=== PATIENT | female | born 1930 | race Caucasian/White ===

== ENCOUNTER 2016-12-23 19:24 | Inpatient (IN) | payer MEDICARE, BC ==
[~2016-12-23] VITALS: Ht 170.2 cm; Wt 57.3 kg
[2016-12-23] MEDS ORDERED: OPTIRAY 350 100 ML VIAL HMH IV ONE (19:25)
[2016-12-23] MEDS ORDERED: FAMOTIDINE 20 MG INJ ONE (23:21)
[2016-12-23] MEDS ORDERED: ONDANSETRON 4 MG VIAL ONE (23:21)
[2016-12-24] MEDS ORDERED: Furosemide 100 MG/10 ML VIAL ONE (03:08)
[2016-12-24] MEDS ORDERED: PROMETHAZINE 25 MG/ML VIAL IV PRN (05:45)
[2016-12-24] MEDS ORDERED: ONDANSETRON 4 MG VIAL IV PUSH PRN (05:45)
[2016-12-24] MEDS ORDERED: ACETAMINOPHEN 325 MG TAB PO PRN (05:45)
[2016-12-24 06:37] VITALS: BMI 19.6
[2016-12-24 06:39] VITALS: BP_SYST 140; BP_SYST 162; RESP 18; TEMP 98.1
[2016-12-24] MEDS ORDERED: Furosemide 20 MG/2 ML VIAL IV SCH (08:00)
[2016-12-24 08:17] VITALS: Ht 170.2 cm; Wt 57.3 kg
[2016-12-24] MEDS: PANTOPRAZOLE 40 MG VIAL IV SCH (08:40)
[2016-12-24] MEDS ORDERED: FLUOROURACIL PO SCH (09:25)
[2016-12-24] MEDS ORDERED: PROP PO SCH (09:25)
[2016-12-24] MEDS ORDERED: *PINK BRACELET XX ONE (09:45)
[2016-12-24] MEDS ORDERED: LIDOCAINE 2% SYR 5 ML IV ONE (09:51)
[2016-12-24] MEDS ORDERED: PROPOFOL 50ML VIAL IV ONE (09:51)
[2016-12-24] MEDS: Carvedilol 6.25 MG TAB PO SCH ×2 (09:53→20:06)
[2016-12-24] MEDS: FLUOROURACIL TOPICAL SCH ×2 (09:54→20:06)
[2016-12-24] MEDS: PROP TOPICAL SCH ×2 (09:54→20:06)
[2016-12-24 11:12] VITALS: BP_SYST 132; RESP 18; TEMP 97.5
[2016-12-24 11:56] VITALS: RESP 18
[2016-12-24 15:36] VITALS: BP_SYST 146; RESP 18; TEMP 97.7
[2016-12-24] MEDS ORDERED: [UNRECOGNIZED DRUG - REMARK] XX SCH (20:00)
[2016-12-24] MEDS: *HOME MEDS IN MED CART XX SCH (20:00)
[2016-12-24 20:14] VITALS: BP_SYST 150; RESP 18; TEMP 97.4
[2016-12-24] MEDS ORDERED: LORAZEPAM 0.5 MG TAB PO SCH (21:00)
[2016-12-24] MEDS ORDERED: TRAZODONE 50 MG TAB PO SCH ×2 (21:00)
[2016-12-24] MEDS ORDERED: AMITRIPTYLINE 25 MG TAB PO SCH (21:00)
[2016-12-24 23:50] VITALS: BP_SYST 133; RESP 18; TEMP 96.1
[2016-12-25] VITALS (8 sets, daily range): BP systolic 118–154; RESP 16–25; TEMP 96.1–99
[2016-12-25] MEDS: *HOME MEDS IN MED CART XX SCH (08:00)
[2016-12-25] MEDS ORDERED: ALLOPURINOL 100 MG TAB PO SCH (09:00)
[2016-12-25] MEDS ORDERED: FLUCONAZOLE 100 MG TAB PO SCH (09:00)
[2016-12-25] MEDS ORDERED: Furosemide 40 MG TAB PO SCH (09:00)
[2016-12-25] MEDS ORDERED: Furosemide 20 MG/2 ML VIAL IV SCH (09:00)
[2016-12-25] MEDS ORDERED: ASPIRIN EC 81 MG TAB PO SCH (09:00)
[2016-12-25] MEDS: PANTOPRAZOLE 40 MG VIAL IV SCH (09:51)
[2016-12-25] MEDS: Carvedilol 6.25 MG TAB PO SCH (09:52)
[2016-12-25] MEDS: FLUOROURACIL TOPICAL SCH (09:54)
[2016-12-25] MEDS: PROP TOPICAL SCH (09:54)
[2016-12-27] MEDS ORDERED: PANTOPRAZOLE 40 MG TAB PO SCH (07:00)
== END 2016-12-25 14:04 | disposition home or self-care (01) | DRG 369 ==
LOC: ENRESERVDT → ENRESERVTM → ER 19:24 → ENPENDDIS 12-24 04:07 → EMR 12-24 04:07 → 4THW 12-24 06:23
PROVIDERS: ADMIT Internal Medicine Nephrology; ATTEND Internal Medicine Nephrology
PROC: 0DB58ZX Excision of Esophagus, Via Natural or Artificial Opening Endoscopic, Diagnostic (ICD-10-PCS; principal; 2016-12-25 16:45)
DX: B37.81 Candidal esophagitis (principal); I13.0 Hypertensive heart and chronic kidney disease with heart failure and stage 1 through stage 4 chronic kidney disease, or unspecified chronic kidney disease; N18.3 Chronic kidney disease, stage 3 (moderate); I50.42 Chronic combined systolic (congestive) and diastolic (congestive) heart failure; K29.70 Gastritis, unspecified, without bleeding; D64.9 Anemia, unspecified; M19.90 Unspecified osteoarthritis, unspecified site; M10.9 Gout, unspecified; E55.9 Vitamin D deficiency, unspecified; E78.5 Hyperlipidemia, unspecified
CPT/HCPCS: 36415; 71020; 71250; 74177; 80053; 80069; 82274; 82553; 83880; 84484; 85025; 88305; 88311; 94799; 96374; 96375